=== PATIENT | female | born 1995 | race Two or more races ===

== ENCOUNTER 2018-12-06 07:02 | Emergency (ER) | payer SELFPAY ==
[~2018-12-06] VITALS: Ht 160 cm; Wt 65.5 kg
[2018-12-06 07:04] VITALS: BP 141/81
[2018-12-06] MEDS ORDERED: METHADONE PO (07:18)
--- NOTE | 2018-12-06 07:34 | NUR ---
LATE NOTE FOR 717: Pt laying on yanci talking to self. Pt states, "I hurt all over." Pt states, "I have been having vaginal bleeding that his heavy for two days. My last period was about a half of a month ago, but I don't know." Pt states, "I fell from the [place]oto, like a baby bird." Pt states, "I need to pee, is there a bathroom in here?" Pt refusing urine sample. Pt refusing vital signs to be taken. Pt stating, "I need medicine before I can do anything. I hurt." Pt refusing to cooperate with care. NADN. All safety measures in place. Pt states, "I do heroin sometimes." EDMD aware.
--- NOTE | 2018-12-06 07:51 | NUR ---
Pt states to this RN, "You're a liar. You're not a cooperative nurse. You said you could check for a vaginal infection from the labs." Pt educated on reason for need of urine sample for UA. Pt refusing to provide urine sample. 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
[2018-12-06 08:15] LABS: ALANINE AMINOTRANSFERASE 32 U/L (12-78); ALBUMIN 3.8 g/dL (3.4-5.0); ANION GAP 11 mmol/L (5-15); CALCIUM 8.6 mg/dL (8.5-10.1); CHLORIDE 111 mmol/L (98-107); CREATININE 0.64 mg/dL (0.55-1.02)
[2018-12-06 08:19] LABS: ALKALINE PHOSPHATASE 105 U/L (45-117); BILIRUBIN,TOTAL 0.3 mg/dL (0.2-1.0)
[2018-12-06 08:26] LABS: BASOPHILS # (AUTO) 0.02 x10^3/uL (0-0.1); BASOPHILS % (AUTO) 0 % (0-1); EOSINOPHILS # (AUTO) 0.01 x10^3/uL (0-0.4); EOSINOPHILS % (AUTO) 0 % (1-7); LYMPHOCYTES # (AUTO) 2.39 x10^3/uL (1-3.4); LYMPHOCYTES % (AUTO) 40 % (22-44); MD NO; MEAN CORPUSCULAR HEMOGLOBIN 30.4 pg (27.0-34.8); MEAN CORPUSCULAR HGB CONC 33.5 g/dL (32.4-35.8); MEAN PLATELET VOLUME 10.1 fL (7.4-10.4); MONOCYTES # (AUTO) 0.34 x10^3/uL (0.2-0.8); MONOCYTES % (AUTO) 6 % (2-9); NEUTROPHILS # (AUTO) 3.18 x10^3/uL (1.8-6.8); NEUTROPHILS % (AUTO) 54 % (42-75); PLATELET COUNT 266 x10^3/uL (130-400); RED BLOOD COUNT 4.98 x10^6/uL (3.82-5.3); RED CELL DISTRIBUTION WIDTH 13.3 % (9.6-15.2)
--- NOTE | 2018-12-06 08:43 | NUR ---
Pt resting on gurney with warm blankets. NADN. Pt refusing for vital signs to be checked.
[2018-12-06 09:00] LABS: MICROSCOPIC INDICATED
[2018-12-06 09:18] LABS: CULTURE INDICATED? YES
--- NOTE | 2018-12-06 09:34 | NUR ---
Pt resting on yanci. LEIA. Pt refusing vital signs to be checked.
--- NOTE | 2018-12-06 10:26 | NUR ---
Pt resting on yanci. ANGELAN. No needs requested at this time.
--- NOTE | 2018-12-06 11:06 | NUR ---
Pt resting on gurney. DUPREE. Pt provided discharge paperwork. Pt states understanding. Pt denines any questions. Pt states, "I need pants. I can't leave with out pants." Pt is wearing own personal clothing and pants at this time. Provided pt fernanda pants from ED donation clothes. Pt appreciative.
--- NOTE | 2018-12-06 11:16 | NUR ---
Patient given discharge instructions and they have confirmed that they understand the instructions. Patient ambulatory with steady gait. Pt escorted from ED by security. Pt verbally aggressive toward ED staff stating "Bitch".
--- NOTE | 2018-12-06 11:17 | NUR ---
Pt left with all personal belongings.
== END 2018-12-06 11:19 | disposition home or self-care (01) ==
LOC: ED 11:13
DX: N93.8 Other specified abnormal uterine and vaginal bleeding (principal)
CPT/HCPCS: 36415; 80053; 81001; 84703; 85025; 87086; 99283